=== PATIENT | male | born 1970 | race Caucasian/White ===

== ENCOUNTER 2020-03-11 15:02 | Emergency (ER) | payer OTHER ==
[~2020-03-11] VITALS: Ht 177.8 cm; Wt 81.7 kg
[~2020-03-11 15:02] MED LIST: ATIVAN0.5 MG PO; ATROVENT15 ML NS; CIPROFLOXACIN500 M1 PO; HUMALOG100 UNIT/1; LANTUS100 UNIT/M SUBQ; MUCINEX TA600 MG/TA2; [UNRECOGNIZED DRUG - OTHER]
[2020-03-11] MEDS ORDERED: PROMETH-CODEIN 65 ML PO (16:03)
[2020-03-11] MEDS ORDERED: ZPAK PO (16:03)
[2020-03-11] MEDS ORDERED: PREDNISONE 20 M20 M1 PO (16:03)
[2020-03-11 16:30] VITALS: BP 150/80
== END 2020-03-11 16:31 | disposition home or self-care (01) ==
LOC: M.ERS 15:02
DX: U07.1 COVID-19 (principal); E11.9 Type 2 diabetes mellitus without complications; Z88.0 Allergy status to penicillin